=== PATIENT | male | born 1980 | race Caucasian/White ===

== ENCOUNTER 2018-01-22 21:15 | Emergency (ER) | payer SELFPAY ==
[~2018-01-22] VITALS: Ht 185.4 cm; Wt 113.4 kg
[2018-01-22 22:45] VITALS: BP 147/98
== END 2018-01-22 22:55 | disposition home or self-care (01) ==
LOC: ED 21:15
DX: I10 Essential (primary) hypertension (principal); R00.2 Palpitations; Q60.0 Renal agenesis, unilateral